=== PATIENT | male | born 1960 | race Hispanic/Latino ===

== ENCOUNTER → 2017-03-23 | Outpatient (CLI) | payer OTHER ==
--- NOTE | 2017-03-23 11:34 | Diagnostic Imaging Report ---
PROCEDURE: Frontal and lateral views of the chest. COMPARISON: None. INDICATIONS: HIGH BLOOD PRESSURE, HEART FAILURE FINDINGS: Lines/tubes: None. Lungs: The lungs are well inflated and clear. There is no evidence of pneumonia or pulmonary edema. Pleura: There is no pleural effusion or pneumothorax. Heart and mediastinum: The heart and the mediastinum are normal. Bones: No acute bony abnormality. Spondylosis of the lower thoracic spine. IMPRESSION: 1. No acute cardiopulmonary disease. Venkata Whatley M.D. Dictated by: Venkata Whatley M.D. on 03/23/2017 at 11:43 Electronically approved by: Venkata Whatley M.D. on 03/23/2017 at 11:43
== END ==
LOC: RAD 08:15
PROVIDERS: ATTEND Internal Medicine
DX: I11.9 Hypertensive heart disease without heart failure (principal)
CPT/HCPCS: 71020